=== PATIENT | male | born 1995 | race Caucasian/White ===

== ENCOUNTER 2016-11-26 22:40 | Emergency (ER) | payer OTHER ==
[~2016-11-26] VITALS: Ht 172.7 cm; Wt 68.0 kg
[~2016-11-26 22:40] MED LIST: BACT800T OR; MOTR200T4 PO; PAIN325T OR
[2016-11-26] MEDS ORDERED: CIPROFLOXACIN 400 MG in APPROPRIATE DILUENT 1 EA IV ONE (23:30)
[2016-11-26] MEDS ORDERED: metroNIDAZOLE 750 MG in APPROPRIATE DILUENT 1 EA IV ONE (23:30)
[2016-11-27] MEDS ORDERED: MORPHINE 4 MG/ML 1ML SYRINGE IV ONE
[2016-11-27] MEDS ORDERED: ONDANSETRON 4MG/2ML VIAL (J2405) As Ordered ONE (00:16)
[2016-11-27 00:27] LABS: BASO % 0.1 % (0.0-1.0); EOS # 0.2 K/mm3 (0.0-0.50); EOS % 1.1 % (0.0-3.0); LARGE UNSTAINED CELL # 0.1 K/mm3 (0.0-0.4); LARGE UNSTAINED CELL % 0.5 % (0.0-4.0); LYMPH # 1.1 K/mm3 (1.5-6.5); LYMPH % 6.3 % (24.0-44.0); MEAN CORPUSCULAR HEMOGLOBIN 32.4 pg (27.0-33.0); MEAN CORPUSCULAR HGB CONC 34.7 g/dl (32.0-36.5); MEAN CORPUSCULAR VOLUME 93.3 fl (80.0-96.0); MONO # 0.6 K/mm3 (0.0-0.8); MONO % 3.1 % (0.0-5.0); NEUTROPHILS # 15.9 K/mm3 (1.8-7.7); NEUTROPHILS % 88.8 % (36.0-66.0); PLATELET COUNT, AUTOMATED 297 k/mm3 (150-450); RED CELL DISTRIBUTION WIDTH 11.5 % (11.5-14.5); WHITE BLOOD COUNT 17.9 K/mm3 (4.0-10.0)
[2016-11-27] MEDS ORDERED: ONDANSETRON 4MG/2ML VIAL (J2405) IV ONE (00:30)
[2016-11-27] MEDS ORDERED: GASTROGRAFIN SOLUTION 30ML (Q9963) PO ONE ×3 (00:45)
[2016-11-27 00:47] LABS: ALBUMIN 4.2 GM/DL (3.2-5.2); ALBUMIN/GLOBULIN RATIO 1.17 (1.00-1.93); ALKALINE PHOSPHATASE 82 U/L (45-117); ALT/SGPT 23 U/L (12-78); AMYLASE 34 U/L (25-115); ANION GAP 6 MEQ/L (8-16); AST/SGOT 18 U/L (15-37); BILIRUBIN,DIRECT 0.2 MG/DL (0.0-0.2); BILIRUBIN,TOTAL 0.6 MG/DL (0.2-1.0); BLOOD UREA NITROGEN 21 MG/DL (7-18); CALCIUM LEVEL 9.6 MG/DL (8.5-10.1); CARBON DIOXIDE LEVEL 30 MEQ/L (21-32); CHLORIDE LEVEL 108 MEQ/L (98-107); CREATININE FOR GFR 1.41 MG/DL (0.70-1.30); GLUCOSE, FASTING 100 MG/DL (70-105); POTASSIUM SERUM 4.1 MEQ/L (3.5-5.1); SODIUM LEVEL 144 MEQ/L (136-145); TOTAL PROTEIN 7.8 GM/DL (6.4-8.2)
[2016-11-27] MEDS ORDERED: ISOVUE-370 76% 100ML VIAL (Q9967) As Ordered ONE (01:16)
[2016-11-27] MEDS ORDERED: METAL LOCK LOOP XX ONE (02:53)
--- NOTE | 2016-11-27 03:10 | REPUSA ---
CLINICAL HISTORY: Abdominal pain. TECHNIQUE: Multiple axial, sagittal and coronal CT images were obtained through the abdomen and pelvi s after administration of oral and intravenous contrast material. COMMENTS: The liver is of uniform attenuation without mass or defect. There is no intra or extrahepatic biliary ductal dilatation. The spleen is normal. The gallbladder is within normal limits. The pancreas is of normal contour and attenuation characteristics. There is no evidence of adrenal mass. Both kidneys demonstrate prompt and equal nephrograms. The kidneys are normal in size, shape and conf iguration. There is no evidence of renal or ureteral mass. No renal or ureteral calculi are identifie d. There is no hydroureter or hydronephrosis. No evidence for appendicitis. There are dilated loops of small bowel up to 4 cm demonstrating sever e wall thickening with transition in the distal ileum compatible with small bowel obstruction. There is no evidence of abdominal ascites or lymphadenopathy. There is no evidence of intrinsic or extrinsic bladder mass. There is a small amout of pelvic ascites . Images of the lung bases show no evidence of pleural or parenchymal mass. There are no pleural effusi ons. The bony structures are free of lytic or blastic lesions. IMPRESSION: Dilated loops of small bowel up to 4 cm demonstrating severe wall thickening with transition in the d istal ileum compatible with small bowel obstruction. Thank you for your kind referral of this patient.
[2016-11-27] MEDS ORDERED: METOCLOPRAMIDE INJ 10MG/2ML VIAL (J2765) IV ONE (04:00)
[2016-11-27] MEDS ORDERED: NS 1,000 ML IV ONE ×2 (05:15)
--- NOTE | 2016-11-27 08:04 | ED PDOC ---
Post-Departure Follow-Up patient seen and evaluated by Dr. stern in the ED with recommendation to D/C Anuja Amin MD Nov 27, 2016 08:04
[2016-11-27 08:33] VITALS: BP 120/67
--- NOTE | 2016-11-27 08:53 | ER ---
DATE OF CONSULTATION: 11/27/2016 Reason for consultation is abdominal pain with possible small bowel obstruction. HISTORY OF THE PRESENT ILLNESS: The patient is a generally healthy, 21-year-old man who presented to the emergency department just before midnight on 11/26/2016 complaining of abdominal pain. He reported that at about 4 o'clock or 5 o'clock in the afternoon of 11/26/2016 he noted the onset of some epigastric abdominal discomfort. This waxed and waned somewhat initially. He took a nap without particular relief. He reports having had a normal bowel movement on 11/26/2016. He had something to eat shortly after the pain started. During the course of the evening, the pain became more persistent. He noted the onset of some nausea and had an episode of vomiting. As noted, he presented to the emergency department just before midnight. His evaluation included some blood work that showed an elevation of his white count and his laboratory studies were otherwise without significant abnormality. His BUN and creatinine were slightly elevated. He had a CT scan of the abdomen and pelvis obtained. This was interpreted by the radiologist as showing dilated loops of small bowel compatible with a small bowel obstruction. A nasogastric tube was inserted and I was consulted to evaluate the patient. The patient reports that since about the time of the CAT scan he has had no further discomfort. He reports he has had an episode of flatus, at least one, in the emergency department. His chief complaint now is of the discomfort in his throat from the nasogastric (NG) tube. He denies any fevers or chills. He has had no upper respiratory infection (URI) or urinary tract infection (UTI) symptoms. He denies any history of prior similar abdominal pains. Medications are none. Allergies to SULFA, which leads to hives. Medical history is negative. Surgical history is significant only for treatment for his wisdom teeth. He has had no abdominal injury or procedure. He has not ever of been told that he had a hernia. Review of systems reveals no history of fevers or chills. He has not had prior abdominal pains. He denies dysuria or hematuria. He has had no melena or hematochezia. There is no heart, lung or endocrine problems. PHYSICAL EXAMINATION: The patient's most recent vital signs showed a temperature of 99.7 with a pulse of 80, respirations of 20 and a blood pressure of 120/88. His pulse oximetry is 98 on room air. When I entered the room, the patient was lying quietly on the emergency department stretcher. He is alert, oriented and cooperative. He is very uncomfortable secondary to the nasogastric tube. Sclerae are anicteric. Mucous membranes are moist. The neck is supple. Heart exam shows a regular rate and rhythm. The lungs are clear to auscultation. The abdomen is flat. He has some bowel sounds present. There is no tympany to percussion. There is no tenderness to percussion. The abdomen is soft. No masses appreciated. There is no rebound or guarding. There is no sign of hernia. Extremities are without edema. His laboratory studies included a CBC showing a white count of 17.9 with a hemoglobin of 17, hematocrit of 48 and a platelet count 297,000. Differential count showed 89% neutrophils and 6% lymphocytes. There were no immature forms reported. His chemistry profile showed a sodium of 144, potassium 4.1, chloride 108, CO2 of 30, BUN of 21, creatinine 1.41 and a glucose of 100. Liver function tests, amylase and lipase were all normal. A urinalysis showed pH of 5 with a specific gravity. There was no significant evidence to suggest a urinary tract infection. His CT scan of the abdomen and pelvis images I reviewed independently. I also reviewed the radiologist report. He does have some mildly to moderately dilated small bowel proximally. The stomach is full of contrast and presumably some food debris. The contrast passes readily down through the proximal half or so of the small bowel. There is some moderate dilation of the bowel down into the pelvis. The contrast reaches only down to the left lower quadrant. There is not a distinct point of transition from dilated to nondilated bowel. There is some fluid noted in the small bowel though. The bowel is less distended low in the right lower quadrant. There is no sign of appendicitis. There is a trace of free fluid in the pelvis. There is no sign of inguinal or umbilical hernia. There is some air and stool within the colon, particularly distally. I had a KUB obtained, which would be about 5-[address] scan was done. On the KUB the contrast is seen still filling the loops of bowel that were visualized on the CAT scan. There is not any contrast seen flowing into the right colon as of yet. Impression is abdominal pain with some moderately dilated proximal to mid small bowel suggestive of an intestinal obstruction. PLAN: I discussed with the patient that he does not have an obvious reason to have a small bowel obstruction. I advised him that the most common cause for obstructions these days is adhesions from prior surgery and he has had no prior surgery. There is no sign of hernia or tumor or infection. I did advise him that occasionally someone will present with some sort of internal developmental abnormalities such as an internal hernia that can lead to an obstruction even without any prior surgery. He reports now that he feels fine, is having no pain and is just hungry. He remains quite upset about the discomfort from his NG tube. His abdomen is benign to exam now. I did advise him that at this point I would not certainly recommend any urgent surgery. I advised him that time will tell whether he actually has an obstruction or not. I advised him that our choices while we wait to see what happens included sending him home or keeping him in the hospital with or without the NG tube. He is an otherwise healthy young man. He indicates that he would prefer to have the NG tube removed and I see no reason not to remove the NG tube at this point. Certainly, he does not have a lot of symptoms to support diagnosis of obstruction at this time. I offered him the option of staying in the hospital on observation and he advised that he is only one block from the hospital and can certainly return if his symptoms warrant. He seems capable of determining whether he is feeling better or worse and reliable to return if he has further problems. We therefore agreed that we would remove the NG tube and let him go home to return if his symptoms recur and he needs further evaluation. I encouraged him to remain on clear liquid such as Gatorade initially to ensure that he can tolerate these liquids well before advancing his diet. If his pain recurs when he restarts a diet or if he develops bloating and further nausea and vomiting then he should return and anticipate admission for further treatment. The patient is agreeable with this plan.
--- NOTE | 2016-11-27 09:59 | REP ---
KUB, ONE VIEW: HISTORY: Abdominal pain. COMPARISON: CT, 11/27/2016. Contrast material is present in the intestine and bladder. Several dilated loops of small intestine are present. There are no air-fluid levels. There is no pneumoperitoneum. An NG tube is present in the stomach. IMPRESSION: There are several dilated loops of small intestine consistent with ileus or small bowel obstruction. A repeat examination is recommended for further evaluation. Signed by Eduardo Mario MD 11/27/2016 10:09 A
== END 2016-11-27 08:43 | disposition home or self-care (01) ==
LOC: M ED 23:47
DX: K56.69 Other intestinal obstruction (principal); Z88.2 Allergy status to sulfonamides
CPT/HCPCS: 74000; 74177; 80048; 80076; 81001; 82150; 83690; 85025; 87086; 96374; 96375; 99284; J2405; J2765; Q9963; Q9967

== ENCOUNTER → 2018-08-30 | Outpatient (CLI) | payer OTHER ==
[2018-08-30 17:31] LABS: BASO % 0.4 % (0.0-1.0); EOS # 0.2 10^3/uL (0.0-0.50); EOS % 2.8 % (0.0-3.0); HEMATOCRIT 48.2 % (42.0-52.0); HEMOGLOBIN 16.3 g/dl (13.5-17.5); LYMPH # 2.1 10^3/uL (1.5-6.5); LYMPH % 26.5 % (24.0-44.0); MEAN CORPUSCULAR HEMOGLOBIN 32.1 pg (27.0-33.0); MEAN CORPUSCULAR HGB CONC 33.8 g/dl (32.0-36.5); MEAN CORPUSCULAR VOLUME 94.9 fl (80.0-96.0); MONO # 0.7 10^3/uL (0.0-0.8); MONO % 8.6 % (0.0-5.0); NEUTROPHILS # 4.8 10^3/uL (1.8-7.7); NEUTROPHILS % 61.1 % (36.0-66.0); PLATELET COUNT, AUTOMATED 309 10^3/uL (150-450); RED BLOOD COUNT 5.08 10^6/uL (4.30-6.10); WHITE BLOOD COUNT 7.9 10^3/uL (4.0-10.0)
[2018-08-30 17:56] LABS: ALT/SGPT 26 U/L (12-78); BILIRUBIN,TOTAL 0.5 MG/DL (0.2-1.0); BLOOD UREA NITROGEN 17 MG/DL (7-18); C REACTIVE PROTEIN QUANTITATIV < 0.30 MG/DL (0.00-0.30); CALCIUM LEVEL 8.5 MG/DL (8.5-10.1); CARBON DIOXIDE LEVEL 28 MEQ/L (21-32); CHLORIDE LEVEL 105 MEQ/L (98-107); CREATININE FOR GFR 1.34 MG/DL (0.70-1.30); FOLATE 10.7 NG/ML; FREE T4 1.28 NG/DL (0.76-1.46); GLOMERULAR FILTRATION RATE > 60.0 (>60); GLUCOSE, FASTING 89 MG/DL (70-100); POTASSIUM SERUM 4.6 MEQ/L (3.5-5.1); SODIUM LEVEL 140 MEQ/L (136-145); TOTAL PROTEIN 7.4 GM/DL (6.4-8.2); VITAMIN B12 LEVEL 817 PG/ML
[2018-08-30 18:38] LABS: ERYTHROCYTE SEDIMENTATION RATE 2 mm/hr (0-15)
[2018-09-02 00:07] LABS: Lyme Disease IgG/IgM Antibodie <0.91 ISR (0.00-0.90); Lyme Disease IgM Ab Quantitati <0.80 index (0.00-0.79)
== END ==
LOC: M WUC 13:34
PROVIDERS: ATTEND Physician Assistant
DX: R20.0 Anesthesia of skin (principal)